=== PATIENT | male | born 1960 | race Caucasian/White ===

== ENCOUNTER 2024-08-12 03:00 | Observation (INO) | payer OTHER ==
[2024-08-12 03:09] VITALS: RESP 18; BMI 32.8
[2024-08-12] MEDS ORDERED: LIDOCAINE 5% TOPICAL PATCH ONE (03:25)
[2024-08-12] MEDS ORDERED: ACETAMINOPHEN 325 MG TABLET (FP) ONE (03:25)
[2024-08-12] MEDS: ACETAMINOPHEN 500 MG TABLET (FP) PO ONE (03:30)
[2024-08-12] MEDS: LIDOCAINE 4% PATCH TP ONE (03:30)
[2024-08-12 04:29] LABS: INR 1.08 (0.83-1.09); PROTHROMBIN TIME (PATIENT) 12.4 SEC (9.7-13.0)
[2024-08-12 04:32] LABS: ACTIVATED PTT 37.2 SECONDS (25.2-36.5)
[2024-08-12 05:09] LABS: BASO % 0.3 % (0-2.0); EOS % 0.3 % (0-4.5); HEMATOCRIT 45.8 % (35.4-49); HEMOGLOBIN 15.2 GM/dL (11.7-16.9); MCH 29.6 pg (25.7-33.7); MCHC 33.3 g/dl (32.0-35.9); MEAN CELL VOLUME 88.8 fl (80-96); MEAN PLT VOLUME 8.3 fl (7.5-11.1); MONO % 6.1 % (3.8-10.2); NEUT % 85.3 % (42.8-82.8); PLATELET COUNT 242 10^3/uL (134-434); RBC 5.16 M/mm3 (4.00-5.60); RDW 13.8 % (11.9-15.9)
[2024-08-12 05:15] LABS: POTASSIUM 3.6 mmol/L (3.5-5.1)
[2024-08-12 05:17] LABS: ALBUMIN 3.5 g/dl (3.4-5.0); BLOOD UREA NITROGEN 17.6 mg/dL (7-18); CALCIUM 9.1 mg/dL (8.5-10.1)
[2024-08-12 05:20] LABS: CREATININE 0.9 mg/dL (0.55-1.3)
[2024-08-12 05:22] LABS: BILIRUBIN,TOTAL 0.8 mg/dL (0.2-1); TOT PROT 7.7 g/dl (6.4-8.2)
[2024-08-12] MEDS: ASPIRIN 81 MG CHEWABLE TABLETS PO ONE ×2 (06:32→06:45)
[2024-08-12] MEDS ORDERED: ASPIRIN 81 MG CHEWABLE TABLETS ONE (06:44)
[2024-08-12] MEDS ORDERED: ACETAMINOPHEN 500 MG TABLET (FP) PO PRN (08:16)
[2024-08-12 08:35] LABS: EPI CELLS 1 /uL (0-25.1); HYALINE CASTS 0 /uL (0-3.1); PH,URINE 5.5 (5.0-8.0); URINE APPEARANCE CLEAR; URINE BACTERIA 1 /uL (0-1359); URINE BILIRUBIN NEGATIVE (NEGATIVE); URINE COLOR YELLOW; URINE GLUCOSE (UA) NEGATIVE (NEGATIVE); URINE KETONE 1+ (NEGATIVE); URINE LEUK ESTERASE NEGATIVE (NEGATIVE); URINE NITRITE NEGATIVE (NEGATIVE); URINE PROTEIN TRACE (NEGATIVE); URINE RBC 8 /uL (0-23.9); URINE WBC 6 /uL (0-25.8)
[2024-08-12] MEDS ORDERED: ISOSORBIDE MONONITRATE 60 MG TAB.SR.24H (FP) PO ONE (09:32)
[2024-08-12] MEDS ORDERED: amLODIPine BESYLATE 10 MG TABLET (FP) ONE (09:32)
[2024-08-12] MEDS ORDERED: CHOLECALCIFEROL (VIT D3) 1,000 UNIT (25 MCG) TABLET ONE (09:33)
[2024-08-12] MEDS ORDERED: RANOLAZINE E.R. 500 MG TABLET (FP) ONE (09:33)
[2024-08-12] MEDS ORDERED: CLOPIDOGREL BISULFATE 75 MG TABLET (FP) ONE (09:33)
[2024-08-12] MEDS ORDERED: CARVEDILOL 25 MG TABLET (FP) ONE (09:33)
[2024-08-12] MEDS: ISOSORBIDE MONONITRATE 60 MG TAB.SR.24H (FP) PO SCH (09:42)
[2024-08-12] MEDS: amLODIPine BESYLATE 10 MG TABLET (FP) PO SCH (09:42)
[2024-08-12] MEDS: CLOPIDOGREL BISULFATE 75 MG TABLET (FP) PO SCH (09:42)
[2024-08-12] MEDS: CARVEDILOL 25 MG TABLET (FP) PO SCH (09:42)
[2024-08-12] MEDS: CHOLECALCIFEROL (VIT D3) 1,000 UNIT (25 MCG) TABLET PO SCH (09:43)
[2024-08-12] MEDS: RANOLAZINE E.R. 500 MG TABLET (FP) PO SCH (09:43)
[2024-08-12] MEDS: INSULIN ASPART SLIDING SCALE (NOVOLOG) 1 VIAL SQ SCH (11:33)
[2024-08-12 16:44] VITALS: PULSE 60
[2024-08-12 18:35] VITALS: BP 105/56; TEMP 97.7
[2024-08-12] MEDS ORDERED: LIDOCAINE PATCH REMOVAL MC SCH (22:00)
[2024-08-12] MEDS ORDERED: ATORVASTATIN CA 80 MG TABLET (FP) PO SCH (22:00)
[2024-08-13] MEDS ORDERED: ASPIRIN COATED 81 MG TABLET.EC PO SCH (10:00)
== END 2024-08-12 18:44 | disposition home or self-care (01) ==
LOC: JER 03:00 → JERBED 06:40
PROVIDERS: ADMIT Internal Medicine; ATTEND Internal Medicine
PROC: 3E013VG Introduction of Insulin into Subcutaneous Tissue, Percutaneous Approach (ICD-10-PCS; principal; 2024-08-12)
DX: M54.9 Dorsalgia, unspecified (principal); I25.10 Atherosclerotic heart disease of native coronary artery without angina pectoris; I11.9 Hypertensive heart disease without heart failure; I73.9 Peripheral vascular disease, unspecified; R79.89 Other specified abnormal findings of blood chemistry; E11.9 Type 2 diabetes mellitus without complications; R94.31 Abnormal electrocardiogram [ECG] [EKG]; Z88.2 Allergy status to sulfonamides; F17.210 Nicotine dependence, cigarettes, uncomplicated
CPT/HCPCS: 0241U-QW; 36415; 71046-TC-FY; 80053; 81003; 82550; 82962; 84484; 85025; 85610; 85730; 87086; 93005; 93010; 96372; 99285-25; G0378